=== PATIENT | male | born 1980 | race Caucasian/White ===

== ENCOUNTER 2018-02-10 17:02 | Emergency (ER) | payer SELFPAY ==
[2018-02-10] MEDS ORDERED: FUL-GLO OP ONE (20:32)
[2018-02-10] MEDS ORDERED: TETRACAINE 0.5% OU ONE (20:32)
[2018-02-10 22:19] VITALS: BP 124/81
== END 2018-02-11 01:26 | disposition left against medical advice (07) ==
LOC: ED 17:02
DX: S05.30XA Ocular laceration without prolapse or loss of intraocular tissue, unspecified eye, initial encounter (principal); Z53.21 Procedure and treatment not carried out due to patient leaving prior to being seen by health care provider; W45.8XXA Other foreign body or object entering through skin, initial encounter; Y93.89 Activity, other specified; Y99.8 Other external cause status; Y92.89 Other specified places as the place of occurrence of the external cause